=== PATIENT | male | born 1940 | race Caucasian/White ===

== ENCOUNTER → 2016-11-15 | Outpatient (CLI) | payer MEDICARE, BC ==
[~2016-11-15] MED LIST: ALBUTEROL17 GM INH; AMBIEN10 MG PO; AMITIZA PO; ASPIRIN81 M2 PO; ASPIRINEC PO; CALAN SR PO; CARVEDILOL12.5 MG PO; CIPRO PO; CLOPIDOGREL75 MG; COREG PO; D3 DOTS2000 UNIT; HYDROCODON-ACE1 EAC5 PO; IMDUR-ER30 M1 PO; LEVAQUIN PO; LEVOXYL150 MCG PO; MULTI-VITAMIN1 TAB PO; MULTIVITAMINS1 EAC2 PO; NORCO 10/325 TA1 TAB PO; PENTOXIFYLINE100 GM PO; PHENERGAN PO; PLAVIX PO; PRAVASTATIN SOD10 MG PO; PROTONIX PO; SYNTHROID88 MCG PO; TESSALON PERLE100 M1 PO; VICODIN 5/500 T1 TAB PO; VYTORIN 10/20 T1 TAB PO; ZESTORETIC 10/11 TAB PO; ZETIA PO; ZOCOR80 MG PO
--- NOTE | ~2016-11-15 | US5 ---
[facility] A Service of [facility] RADIOLOGY TEXT RESULTS PATIENT: TAHIR ROMANO LOCATION: [facility] : 40 UNIT #: [id number] AGE: [address]: Daily Lane MD SEX: M ORDER DR: [id number] [facility] [address] [place], [place] [address] [id number] O MR#: [id number] Acc #: [id number] NAME: TAHIR ROMANO : 1940 SEX: M STUDY DATE/TIME: 11/15/2016 10:38 UNIT: [facility] ROOM: STUDY DESCRIPTION: US Abdominal Complete Attending Physician: Daily Lane M.D. Referring Physician: Daily Lane M.D. Ordering Physician: Daily Lane M.D. Primary Care Physician: Daily Lane M.D. MEDICAL IMAGING REPORT This report is preliminary unless electronic signature is present EXAM Abdominal ultrasound complete 11/15/2016 HISTORY Abnormally elevated liver enzymes. Abdominal pain for 5 months. FINDINGS The liver demonstrates an increase in echotexture with attenuation of the ultrasound beam characteristic of fatty infiltration. No cystic or solid mass lesions were seen in the liver. The intra- and extrahepatic bile ducts are not dilated. The gallbladder is normal with no evidence of cholelithiasis, wall thickening or pericholecystic fluid. The common duct measures 6 mm. Pancreas is poorly visualized due to overlying bowel gas. The spleen measures 10.9 cm in greatest diameter. The visualized portions of the abdominal aorta and inferior vena cava are within normal limits. The kidneys are normal bilaterally. IMPRESSION 1. Fatty infiltration of the liver. 2. Normal gallbladder. 3. Poor visualization of the pancreas due to overlying bowel gas. Dictated by... Robert Nagel M.D. THIS IS AN ELECTRONICALLY VERIFIED REPORT Robert Nagel M.D. at 11/19/2016 2:12 PM DANIEL/dimas TD: 11/19/2016 07:53 JOB #: [id number] [facility] A Service of [facility] RADIOLOGY TEXT RESULTS PATIENT: TAHIR ROMANO LOCATION: [facility] #: [id number] : 40 UNIT #: [id number] AGE: [address]: Daily Lane MD SEX: M ORDER DR: MEDICAL IMAGING REPORT Page 1 of 1 COPY
--- NOTE | ~2016-11-15 | US37 ---
[facility] A Service of [facility] RADIOLOGY TEXT RESULTS PATIENT: TAHIR ROMANO LOCATION: [facility] : 40 UNIT #: [id number] AGE: [address]: Daily Lane MD SEX: M ORDER DR: [id number] [facility] [address] [facility] [address] [place], [place] [address] [id number] O MR#: [id number] Acc #: [id number] NAME: TAHIR ROMANO : 1940 SEX: M STUDY DATE/TIME: 11/15/2016 10:58 UNIT: [facility] ROOM: STUDY DESCRIPTION: US Carotid W/Doppler Bilateral Attending Physician: Daily Lane M.D. Referring Physician: Daily Lane M.D. Ordering Physician: Daily Lane M.D. Primary Care Physician: Daily Lane M.D. MEDICAL IMAGING REPORT This report is preliminary unless electronic signature is present EXAM Bilateral carotid duplex HISTORY Dizziness. FINDINGS There is patent flow seen throughout the right common carotid, internal carotid and external carotid arteries. There is some mild, diffuse, heterogeneous, irregular appearing plaque seen in the common carotid artery, extending to the distal portion and the carotid bifurcation. The proximal aspect of the right internal carotid artery has irregular, echogenic, and homogeneous appearing plaque. The right common carotid artery peak velocity is 47 cm/sec. The right internal carotid artery peak systolic/end-diastolic velocities are: proximal 60/13 cm/sec, mid- 41/15 cm/sec, distal 65/16 cm/sec. The right external carotid artery has peak velocity of 98 cm/sec and vertebral artery 20 cm/sec. The right ICA:CCA ratio is 1.38. There is patent flow seen throughout the left common carotid, internal carotid, and external carotid arteries. At the distal aspect of the left common carotid artery, there is some irregular, heterogeneous, and echogenic plaque. There is also some irregular heterogeneous plaque seen in the proximal aspect of the left internal carotid artery. The left common carotid artery peak velocity is 72 cm/sec. The left internal carotid artery peak systolic/end-diastolic velocities are: proximal 40/7 cm/sec, mid- 30/6 cm/sec, distal 37/5 cm/sec. The left external carotid artery peak velocity is 66 cm/sec and vertebral artery 60 cm/sec. The left ICA:CCA ratio is 0.55. IMPRESSION 1. The right carotid artery has mild atherosclerosis, which is not STS. [facility] A Service of [facility] & [facility] RADIOLOGY TEXT RESULTS PATIENT: TAHIR ROMANO LOCATION: [facility] #: [id number] : 40 UNIT #: [id number] AGE: [address]: Daily Lane MD SEX: M ORDER DR: hemodynamically significant by duplex criteria (less than 50%). 2. The left carotid artery has mild atherosclerosis, which is not hemodynamically significant by duplex criteria (less than 50%). 3. Vertebral flow is antegrade bilaterally. Dictated by... Norbert Oquendo M.D. THIS IS AN ELECTRONICALLY VERIFIED REPORT Norbert Oquendo M.D. at 11/18/2016 9:42 AM KENYETTA/josie TD: 11/15/2016 18:09 JOB #: [id number] MEDICAL IMAGING REPORT Page 1 of 1 COPY
== END | disposition home or self-care (01) ==
LOC: CGUS 09:57
DX: I65.23 Occlusion and stenosis of bilateral carotid arteries (principal); K75.81 Nonalcoholic steatohepatitis (NASH); R79.89 Other specified abnormal findings of blood chemistry; K76.0 Fatty (change of) liver, not elsewhere classified
CPT/HCPCS: 76700; 93880